=== PATIENT | female | born 1960 | race Caucasian/White ===

== ENCOUNTER 2020-05-03 11:13 | Emergency (ER) | payer OTHER ==
[~2020-05-03] VITALS: Ht 167.6 cm; Wt 82.0 kg
--- NOTE | 2020-05-03 11:41 | NUR ---
PT AMBULATORY TO ROOM 8 W/ C/O LLQ ABD PAIN STARTED TODAY AT 0200. STATES SHE WENT TO THIS AM AND WAS GIVEN A SHOT OF TORADOL THAT HAS HELPED W/ HER PAIN. PT ALSO STATES THEY WANTED HER TO COME TO ED TO GET A CT ABD PELVIS WITH CONT. PT RESTING ON BETO. GEOFFREY. MONITORS APPLIED. STUDENT AT BEDSIDE FOR ANA.
[2020-05-03] MEDS ORDERED: SODIUM CHLORIDE 0.9% 1,000 ML IV ONE (12:00)
[2020-05-03] MEDS ORDERED: SODIUM CHLORIDE FLUSH 10ML SYR IVF ONE (12:00)
[2020-05-03 12:15] LABS: BASOPHILS % (AUTO) 0 % (0-1); EOSINOPHILS % (AUTO) 0 % (1-7); LYMPHOCYTES % (AUTO) 6 % (22-44); MEAN CORPUSCULAR HGB CONC 33.9 g/dL (32.4-35.8); MEAN PLATELET VOLUME 8.8 fL (7.4-10.4); MONOCYTES % (AUTO) 4 % (2-9); NEUTROPHILS % (AUTO) 89 % (42-75); PLATELET COUNT 245 x10^3/uL (130-400); RED BLOOD COUNT 4.52 x10^6/uL (3.82-5.3)
[2020-05-03 12:18] LABS: MD NO
[2020-05-03 12:23] LABS: ALBUMIN 3.9 g/dL (3.4-5.0); ANION GAP 7 mmol/L (5-15); CALCIUM 9.7 mg/dL (8.5-10.1); CHLORIDE 111 mmol/L (98-107)
[2020-05-03 12:25] LABS: MICROSCOPIC INDICATED
[2020-05-03 12:28] LABS: ALANINE AMINOTRANSFERASE 29 U/L (12-78); ALKALINE PHOSPHATASE 59 U/L (45-117); BILIRUBIN,TOTAL 0.4 mg/dL (0.2-1.0); TOTAL PROTEIN 7.6 g/dL (6.4-8.2)
[2020-05-03] MEDS ORDERED: PLEASE ENTER ALLERGIES MC SCH (12:30)
--- NOTE | 2020-05-03 12:30 | NUR ---
PT RESTING ON GURNEY. NADN. MCDONOUGH.
--- NOTE | 2020-05-03 12:57 | NUR ---
REPORT GIVEN TO DAVID FUENTES.
[2020-05-03] MEDS ORDERED: OMNIPAQUE 350 MG/ML, 100ML BOTTLE ONE (13:03)
--- NOTE | 2020-05-03 13:03 | NUR ---
PT BACK FROM IMAGING, PT STATES HER PAIN IS BETTER.
--- NOTE | 2020-05-03 13:23 | NUR ---
MD AT BEDSIDE, PLAN TO DC
--- NOTE | 2020-05-03 13:35 | NUR ---
Patient/Caregiver given discharge instructions and they have confirmed that they understand the instructions. Patient ambulatory with steady gait.
[2020-05-03 13:36] VITALS: BP 125/62
== END 2020-05-03 13:38 | disposition home or self-care (01) ==
LOC: ED 13:30
DX: N13.2 Hydronephrosis with renal and ureteral calculous obstruction (principal); N39.0 Urinary tract infection, site not specified; R11.0 Nausea; I10 Essential (primary) hypertension; E78.5 Hyperlipidemia, unspecified
CPT/HCPCS: 36415; 74177; 80053; 81001; 83690; 85025; 87086; 96360; 99285; J7030; Q9967